=== PATIENT | female | born 1985 | race Caucasian/White ===

== ENCOUNTER 2016-10-10 13:59 | Emergency (ER) | payer SELFPAY ==
[~2016-10-10] VITALS: Ht 162.6 cm; Wt 79.0 kg
[~2016-10-10 13:59] MED LIST: PROZ20CA11 PO; VIST25CA PO
[2016-10-10 14:01] VITALS: BP 120/66; PULSE 70; RESP 20; TEMP 98.8; O2SAT 98
--- NOTE | 2016-10-10 14:06 | PD ---
Physical Exam Date Seen by Provider: Oct 10, 2016 Time Seen by Provider: 14:04 Narrative 30 yo female here for "parasites". She states she has seen hair like worms on her stool. Dogs also seem to have it. No pain, but feels anorexic. Brought stool sample with her. No history of this in the past. Vitals are stable in triage. Awaiting Bed placement. Data Data Last Documented VS Vital Signs Date Time Temp Pulse Resp B/P (MAP) Pulse Ox O2 Delivery O2 Flow Rate FiO2 10/10/16 14:01 98.8 70 20 120/66 (84) 98 Room Air [facility] Medical Record Reviewed: Yes Supervised Visit with JOSE MIGUEL: No Dilan Melvin Oct 10, 2016 14:06
== END 2016-10-10 15:28 | disposition left against medical advice (07) ==
LOC: NED 13:59
DX: B83.9 Helminthiasis, unspecified (principal)
CPT/HCPCS: 99281